=== PATIENT | female | born 1955 | race Caucasian/White ===

== ENCOUNTER 2024-07-12 13:04 | Inpatient (IN) | payer MEDICARE ==
[~2024-07-12] VITALS: Ht 157.5 cm; Wt 77.3 kg
[2024-07-12 13:56] LABS: BASOPHILS % (AUTO) 0.2 % (0-1); EOSINOPHILS # (AUTO) 0.1 X10'3 (0-0.9); EOSINOPHILS % (AUTO) 0.4 % (0-6); HEMATOCRIT 36.4 % (35.0-45.0); HEMOGLOBIN 12.5 g/dl (12.0-16.0); LYMPHOCYTES # (AUTO) 1.2 X10'3 (1.1-4.8); LYMPHOCYTES % (AUTO) 6.4 % (21-51); MEAN CORPUSCULAR HEMOGLOBIN 27.4 PG (27.0-31.0); MEAN CORPUSCULAR HGB CONC 34.3 g/dL (33.0-36.5); MEAN CORPUSCULAR VOLUME 79.8 FL (78-98); MEAN PLATELET VOLUME 8.3 FL (7.4-10.4); MONOCYTES # (AUTO) 1.1 X10'3 (0-0.9); MONOCYTES % (AUTO) 5.6 % (2-12); NEUTROPHILS # (AUTO) 16.9 X10'3 (1.8-7.7); NEUTROPHILS % (AUTO) 87.4 % (42-75); PLATELET COUNT 460 X10'3 (140-440); RED BLOOD COUNT 4.57 X10'6 (4.20-5.60); RED CELL DISTRIBUTION WIDTH 13.8 % (11.5-14.5); WHITE BLOOD COUNT 19.4 X10'3 (4.5-11.0)
[2024-07-12 14:27] LABS: ALANINE AMINOTRANSFERASE 29 U/L (12-78); ALKALINE PHOSPHATASE 77 IU/L (46-116); ANION GAP 16 (8-16); ASPARTATE AMINO TRANSFERASE 24 U/L (10-37); BILIRUBIN,TOTAL 0.7 MG/DL (0.1-1.0); BLOOD UREA NITROGEN 29 MG/DL (7-18); BUN/CREATININE RATIO 12.9 (10.0-20.0); CHLORIDE 88 MMOL/L (99-107); CREATININE 2.25 MG/DL (0.40-0.90); GLUCOSE 112 MG/DL (70-104); SODIUM 121 MMOL/L (135-145); TOTAL CARBON DIOXIDE 16.6 MMOL/L (24-32); TOTAL PROTEIN 8.1 G/DL (6.4-8.2); eCRCL 18 ML/MIN; eGFR 21 ML/MIN
[2024-07-12 14:29] LABS: POTASSIUM 2.6 MMOL/L (3.5-5.1); PRO BRAIN NATRIURETIC PEPTIDE 103 PG/ML (0-125)
[2024-07-12] MEDS: potassium CL 10mEq/100ml bag 100 ML IV SCH (15:17)
[2024-07-12] MEDS: ringers solution, lacted 1,000 ML IV ONE (15:20)
[2024-07-12] MEDS: magnesium sulf-water 2g/50mL 50 ML IV ONE (15:31)
[2024-07-12 15:42] LABS: MAGNESIUM 1.2 MG/DL (1.5-2.4)
[2024-07-12 16:14] LABS: C DIFF ANTIGEN NEGATIVE (NEGATIVE); C DIFF SPECIMEN=DIARRHEA? ACCEPTABLE; C DIFFICILE TOXINS A&B NEGATIVE (Neg)
[2024-07-12] MEDS ORDERED: magnesium sulf-water 4G/100mL 100 ML IV PRN (16:45)
[2024-07-12] MEDS ORDERED: morphine 2 MG/ML inj. syringe IV PRN (16:45)
[2024-07-12] MEDS ORDERED: ondansetron/PF 4mg/2ml inj IV PRN (16:45)
[2024-07-12] MEDS ORDERED: normal saline 1000ml 1,000 ML IV SCH (16:45)
[2024-07-12] MEDS ORDERED: magnesium sulf-water 2g/50mL 50 ML IV PRN (16:45)
[2024-07-12] MEDS ORDERED: potassium Cl 40MEQ/1/2NS 520ml 520 ML IV PRN (16:45)
[2024-07-12] MEDS ORDERED: potassium Cl 20 mEq SR tablet PO PRN (16:45)
[2024-07-12] MEDS ORDERED: HYDROcodone/acetaminophen 5mg/325mg tablet PO PRN (16:45)
[2024-07-12] MEDS ORDERED: acetaminophen 325mg tablet PO PRN ×2 (16:45)
[2024-07-12] MEDS ORDERED: iohexol 300mg/ml 100ml inj. ONE (16:49)
[2024-07-12] MEDS: hydrALAZINE 25 MG tablet PO SCH (17:20)
[2024-07-12] MEDS: amLODIPine 5mg tablet PO SCH (17:20)
[2024-07-12] MEDS: ciprofloxacin lact 400MG/200ML 200 ML IV SCH (17:42)
[2024-07-12] MEDS: sodium bicarbonate (8.4%) inj. 50 MEQ in dextrose 5%-water 1,000 ML IV SCH (18:11)
[2024-07-12 20:00] VITALS: RESP 20; O2SAT 99
[2024-07-12] MEDS: metroNIDAZOLE-Flagyl 500mg/NS 100 ML IV SCH (20:18)
[2024-07-12] MEDS: heparin, porcine 5000 units/ml vial SQ SCH (20:19)
[2024-07-12 22:07] VITALS: BP 135/71; PULSE 71; RESP 20; TEMP 97.4; O2SAT 99
[2024-07-12 23:58] VITALS: BP 124/59; PULSE 74
[2024-07-13] VITALS (9 sets, daily range): BP systolic 111–136; BP diastolic 55–66; PULSE 72–78; RESP 11–21; TEMP 97.4–98.6; O2SAT 97–99
[2024-07-13 05:05] LABS: BASOPHILS # (AUTO) 0.1 X10'3 (0-0.2); BASOPHILS % (AUTO) 0.4 % (0-1); EOSINOPHILS # (AUTO) 0.3 X10'3 (0-0.9); EOSINOPHILS % (AUTO) 1.8 % (0-6); HEMATOCRIT 32.3 % (35.0-45.0); HEMOGLOBIN 11.2 g/dl (12.0-16.0); LYMPHOCYTES # (AUTO) 1.5 X10'3 (1.1-4.8); LYMPHOCYTES % (AUTO) 9.9 % (21-51); MEAN CORPUSCULAR HEMOGLOBIN 27.2 PG (27.0-31.0); MEAN CORPUSCULAR HGB CONC 34.6 g/dL (33.0-36.5); MEAN CORPUSCULAR VOLUME 78.5 FL (78-98); MEAN PLATELET VOLUME 8.6 FL (7.4-10.4); MONOCYTES # (AUTO) 1.1 X10'3 (0-0.9); MONOCYTES % (AUTO) 7.3 % (2-12); NEUTROPHILS # (AUTO) 12.1 X10'3 (1.8-7.7); NEUTROPHILS % (AUTO) 80.6 % (42-75); PLATELET COUNT 402 X10'3 (140-440); RED BLOOD COUNT 4.12 X10'6 (4.20-5.60); RED CELL DISTRIBUTION WIDTH 13.7 % (11.5-14.5); WHITE BLOOD COUNT 15.1 X10'3 (4.5-11.0)
[2024-07-13 05:22] LABS: ALANINE AMINOTRANSFERASE 29 U/L (12-78); ALBUMIN 3.3 G/DL (3.4-5.0); ALBUMIN/GLOBULIN RATIO 0.9 (1.1-1.5); ALKALINE PHOSPHATASE 68 IU/L (46-116); ANION GAP 10 (8-16); ASPARTATE AMINO TRANSFERASE 25 U/L (10-37); BILIRUBIN,TOTAL 0.7 MG/DL (0.1-1.0); BLOOD UREA NITROGEN 21 MG/DL (7-18); BUN/CREATININE RATIO 13.2 (10.0-20.0); CALCIUM 8.2 MG/DL (8.5-10.1); CHLORIDE 91 MMOL/L (99-107); CREATININE 1.59 MG/DL (0.40-0.90); GLUCOSE 112 MG/DL (70-104); SODIUM 122 MMOL/L (135-145); TOTAL CARBON DIOXIDE 21.2 MMOL/L (24-32); TOTAL PROTEIN 7.1 G/DL (6.4-8.2); eCRCL 26 ML/MIN; eGFR 32 ML/MIN
[2024-07-13 05:34] LABS: POTASSIUM 2.7 MMOL/L (3.5-5.1)
[2024-07-13] MEDS: potassium Cl 20 mEq SR tablet PO PRN (05:39)
[2024-07-13] MEDS: ringers solution, lacted 1,000 ML IV SCH (08:45)
[2024-07-13 10:18] LABS: PHOSPHORUS 3.2 MG/DL (2.3-4.5)
[2024-07-13] MEDS ORDERED: potassium Cl 20 mEq SR tablet PO STA (14:06)
[2024-07-13] MEDS ORDERED: POTASSIUM CHLORIDE 40 MEQ IV ONE (14:20)
[2024-07-13] MEDS ORDERED: SODIUM CHLORIDE IV ONE (14:20)
[2024-07-13] MEDS: magnesium sulf-water 2g/50mL 50 ML IV ONE (14:20)
[2024-07-13] MEDS: normal saline 1000ml 1,000 ML IV SCH (14:25)
[2024-07-13] MEDS: potassium Cl 40MEQ/1/2NS 520ml 520 ML IV ONE (14:25)
[2024-07-13 15:03] LABS: OCCULT BLOOD STOOL NEGATIVE (Neg)
[2024-07-13 16:47] LABS: MAGNESIUM 1.5 MG/DL (1.5-2.4); POTASSIUM 3.4 MMOL/L (3.5-5.1)
[2024-07-13] MEDS: magnesium Cl slow-release 64mg tablet PO PRN (17:30)
[2024-07-13] MEDS: sodium chloride 1gm tablet PO ONE (17:40)
[2024-07-13 18:04] LABS: BILIRUBIN,URINE NEGATIVE (Neg); CLARITY,URINE CLEAR (Clear); COLOR,URINE STRAW (Yellow); GLUCOSE, URINE NEGATIVE (Neg); KETONES,URINE NEGATIVE (Neg); LEUKOCYTE ESTERASE ,URINE NEGATIVE (Neg); NITRITES, URINE NEGATIVE (Neg); OCCULT BLOOD,URINE NEGATIVE (Neg); PH,URINE 5.5 (4.8-8.0); PROTEIN,URINE NEGATIVE (Neg); UROBILINOGEN,URINE 0.2 E.U/dL (0.2-1.0)
[2024-07-13 18:11] LABS: CHLORIDE,URINE RANDOM < 50 MEQ/L; SODIUM,URINE RANDOM 24 MEQ/L
[2024-07-13 18:17] LABS: UA COLLECTION TYPE NON-SPECIFIED
[2024-07-13] MEDS: sodium chloride 1gm tablet PO SCH (20:11)
[2024-07-13 20:41] LABS: MAGNESIUM 1.5 MG/DL (1.5-2.4); POTASSIUM 3.6 MMOL/L (3.5-5.1)
[2024-07-14] VITALS (7 sets, daily range): BP systolic 92–123; BP diastolic 44–59; PULSE 64–73; RESP 17–18; TEMP 97.4–98.6; O2SAT 96–99
[2024-07-14 03:45] LABS: BASOPHILS % (AUTO) 0.4 % (0-1); EOSINOPHILS # (AUTO) 0.2 X10'3 (0-0.9); EOSINOPHILS % (AUTO) 1.6 % (0-6); HEMATOCRIT 31.6 % (35.0-45.0); HEMOGLOBIN 11.2 g/dl (12.0-16.0); LYMPHOCYTES % (AUTO) 19.5 % (21-51); MEAN CORPUSCULAR HEMOGLOBIN 28.2 PG (27.0-31.0); MEAN CORPUSCULAR HGB CONC 35.4 g/dL (33.0-36.5); MEAN CORPUSCULAR VOLUME 79.7 FL (78-98); MONOCYTES % (AUTO) 9.6 % (2-12); NEUTROPHILS # (AUTO) 7.1 X10'3 (1.8-7.7); NEUTROPHILS % (AUTO) 68.9 % (42-75); PLATELET COUNT 379 X10'3 (140-440); RED BLOOD COUNT 3.96 X10'6 (4.20-5.60); RED CELL DISTRIBUTION WIDTH 13.8 % (11.5-14.5); WHITE BLOOD COUNT 10.2 X10'3 (4.5-11.0)
[2024-07-14 03:57] LABS: ALANINE AMINOTRANSFERASE 29 U/L (12-78); ALBUMIN 3.1 G/DL (3.4-5.0); ALBUMIN/GLOBULIN RATIO 0.8 (1.1-1.5); ALKALINE PHOSPHATASE 65 IU/L (46-116); ANION GAP 6 (8-16); ASPARTATE AMINO TRANSFERASE 42 U/L (10-37); BILIRUBIN,TOTAL 0.5 MG/DL (0.1-1.0); BLOOD UREA NITROGEN 10 MG/DL (7-18); BUN/CREATININE RATIO 7.4 (10.0-20.0); CALCIUM 8.3 MG/DL (8.5-10.1); CHLORIDE 99 MMOL/L (99-107); CREATININE 1.35 MG/DL (0.40-0.90); GLUCOSE 90 MG/DL (70-104); MAGNESIUM 1.5 MG/DL (1.5-2.4); PHOSPHORUS 2.9 MG/DL (2.3-4.5); SODIUM 127 MMOL/L (135-145); TOTAL CARBON DIOXIDE 21.7 MMOL/L (24-32); TOTAL PROTEIN 6.8 G/DL (6.4-8.2); eCRCL 30 ML/MIN; eGFR 39 ML/MIN
[2024-07-14 03:58] LABS: POTASSIUM 4.3 MMOL/L (3.5-5.1)
[2024-07-14] MEDS: diatr meglu/diatrizoate 30ml oral sol.-(3 dose) bottle PO SCH (08:09)
[2024-07-14] MEDS ORDERED: iohexol 300mg/ml 100ml inj. ONE (08:20)
[2024-07-14 08:27] LABS: MAGNESIUM 1.6 MG/DL (1.5-2.4); POTASSIUM 3.8 MMOL/L (3.5-5.1)
[2024-07-14] MEDS: methylPREDNISolone sod succ 125mg/2ml vial IV ONE (15:28)
[2024-07-14] MEDS: methylPREDNISolone sod succ 125mg/2ml vial IV SCH (19:47)
[2024-07-15] VITALS (8 sets, daily range): BP systolic 122–142; BP diastolic 52–72; PULSE 86–100; RESP 11–19; TEMP 97.2–99.4; O2SAT 98–99
[2024-07-15] MEDS ORDERED: PANT20TA18 PO (04:09)
[2024-07-15] MEDS ORDERED: OLME1TAB50 PO (04:09)
[2024-07-15 06:45] LABS: BASOPHILS % (AUTO) 0.1 % (0-1); EOSINOPHILS % (AUTO) 0 % (0-6); HEMATOCRIT 34.4 % (35.0-45.0); HEMOGLOBIN 11.9 g/dl (12.0-16.0); LYMPHOCYTES # (AUTO) 0.7 X10'3 (1.1-4.8); LYMPHOCYTES % (AUTO) 5.9 % (21-51); MEAN CORPUSCULAR HEMOGLOBIN 28.1 PG (27.0-31.0); MEAN CORPUSCULAR HGB CONC 34.4 g/dL (33.0-36.5); MEAN CORPUSCULAR VOLUME 81.7 FL (78-98); MEAN PLATELET VOLUME 8.2 FL (7.4-10.4); MONOCYTES # (AUTO) 0.1 X10'3 (0-0.9); MONOCYTES % (AUTO) 1.1 % (2-12); NEUTROPHILS # (AUTO) 10.5 X10'3 (1.8-7.7); NEUTROPHILS % (AUTO) 92.9 % (42-75); PLATELET COUNT 372 X10'3 (140-440); RED BLOOD COUNT 4.21 X10'6 (4.20-5.60); RED CELL DISTRIBUTION WIDTH 13.9 % (11.5-14.5); WHITE BLOOD COUNT 11.3 X10'3 (4.5-11.0)
[2024-07-15 07:20] LABS: MAGNESIUM 1.5 MG/DL (1.5-2.4)
[2024-07-15 09:04] LABS: ALANINE AMINOTRANSFERASE 38 U/L (12-78); ALBUMIN 3.4 G/DL (3.4-5.0); ALBUMIN/GLOBULIN RATIO 0.9 (1.1-1.5); ALKALINE PHOSPHATASE 71 IU/L (46-116); ANION GAP 9 (8-16); ASPARTATE AMINO TRANSFERASE 33 U/L (10-37); BILIRUBIN,TOTAL 0.2 MG/DL (0.1-1.0); BLOOD UREA NITROGEN 8 MG/DL (7-18); BUN/CREATININE RATIO 6.2 (10.0-20.0); CALCIUM 8.3 MG/DL (8.5-10.1); CHLORIDE 104 MMOL/L (99-107); GLUCOSE 130 MG/DL (70-104); SODIUM 133 MMOL/L (135-145); TOTAL PROTEIN 7.3 G/DL (6.4-8.2); eCRCL 31 ML/MIN; eGFR 40 ML/MIN
[2024-07-15] MEDS: methylPREDNISolone sod succ/PF 40mg inj. IV SCH (14:27)
[2024-07-16] VITALS (15 sets, daily range): BP systolic 95–160; BP diastolic 42–75; PULSE 69–117; RESP 9–20; TEMP 97.6–98.3; O2SAT 90–99
[2024-07-16 07:29] LABS: BASOPHILS % (AUTO) 0.1 % (0-1); EOSINOPHILS % (AUTO) 0 % (0-6); HEMATOCRIT 34.2 % (35.0-45.0); HEMOGLOBIN 10.9 g/dl (12.0-16.0); LYMPHOCYTES # (AUTO) 1.2 X10'3 (1.1-4.8); LYMPHOCYTES % (AUTO) 6.8 % (21-51); MEAN CORPUSCULAR HEMOGLOBIN 27.2 PG (27.0-31.0); MEAN CORPUSCULAR VOLUME 85.2 FL (78-98); MEAN PLATELET VOLUME 8.2 FL (7.4-10.4); MONOCYTES # (AUTO) 0.6 X10'3 (0-0.9); MONOCYTES % (AUTO) 3.2 % (2-12); NEUTROPHILS % (AUTO) 89.9 % (42-75); PLATELET COUNT 381 X10'3 (140-440); RED BLOOD COUNT 4.01 X10'6 (4.20-5.60); RED CELL DISTRIBUTION WIDTH 14.6 % (11.5-14.5); WHITE BLOOD COUNT 17.8 X10'3 (4.5-11.0)
[2024-07-16 07:57] LABS: ALANINE AMINOTRANSFERASE 36 U/L (12-78); ALBUMIN 3.3 G/DL (3.4-5.0); ALBUMIN/GLOBULIN RATIO 1.1 (1.1-1.5); ALKALINE PHOSPHATASE 65 IU/L (46-116); ANION GAP 9 (8-16); ASPARTATE AMINO TRANSFERASE 35 U/L (10-37); BILIRUBIN,TOTAL 0.2 MG/DL (0.1-1.0); BLOOD UREA NITROGEN 11 MG/DL (7-18); BUN/CREATININE RATIO 9.2 (10.0-20.0); CALCIUM 8.2 MG/DL (8.5-10.1); CHLORIDE 107 MMOL/L (99-107); CREATININE 1.19 MG/DL (0.40-0.90); GLUCOSE 124 MG/DL (70-104); MAGNESIUM 1.7 MG/DL (1.5-2.4); POTASSIUM 3.8 MMOL/L (3.5-5.1); SODIUM 136 MMOL/L (135-145); TOTAL CARBON DIOXIDE 20.4 MMOL/L (24-32); TOTAL PROTEIN 6.4 G/DL (6.4-8.2); eCRCL 34 ML/MIN; eGFR 45 ML/MIN
[2024-07-16] MEDS ORDERED: LIDOcaine 2% Viscous 15ml cup ONE (12:02)
[2024-07-16] MEDS ORDERED: MIDAZolam 1 MG/ML 5ML VIAL ONE ×2 (12:24→12:37)
[2024-07-16] MEDS ORDERED: fentaNYL/PF 50MCG/1 ML 2ML syringe ONE ×2 (12:24→12:37)
[2024-07-16] MEDS ORDERED: NOR5T PO (13:02)
[2024-07-16] MEDS ORDERED: PRED10TA23 PO (13:02)
== END 2024-07-16 17:19 | disposition home or self-care (01) | DRG 871 ==
LOC: ER 13:05 → PCU 3S 16:51
PROVIDERS: ADMIT Internal Medicine; ATTEND Internal Medicine
PROC: BW211ZZ Computerized Tomography (CT Scan) of Abdomen and Pelvis using Low Osmolar Contrast (ICD-10-PCS; 2024-07-14)
PROC: 0DB98ZX Excision of Duodenum, Via Natural or Artificial Opening Endoscopic, Diagnostic (ICD-10-PCS; principal; 2024-07-16)
PROC: 0DB68ZX Excision of Stomach, Via Natural or Artificial Opening Endoscopic, Diagnostic (ICD-10-PCS; 2024-07-16)
DX: A41.89 Other specified sepsis (principal); N17.0 Acute kidney failure with tubular necrosis; E87.1 Hypo-osmolality and hyponatremia; A08.4 Viral intestinal infection, unspecified; E87.6 Hypokalemia; E86.0 Dehydration; K21.9 Gastro-esophageal reflux disease without esophagitis; E83.42 Hypomagnesemia; K29.80 Duodenitis without bleeding; I10 Essential (primary) hypertension; K29.70 Gastritis, unspecified, without bleeding; Z88.2 Allergy status to sulfonamides
CPT/HCPCS: 36415; 43239; 71045; 74176; 74177; 76770; 80053; 81003; 82272; 82436; 83605; 83735; 83880; 84100; 84132; 84133; 84145; 84300; 84484; 85025; 85651; 87040; 87045; 87046; 87081; 87324; 87449; 89055; 93005; 96361; 96365; 97161; 97530; 99152; 99285; A4620; A6258; G0378; J0744; J1644; J2250; J2919; J3010; J3480; J3490; J7030; J7040; J7070; J7120; Q9963; Q9967

== ENCOUNTER 2024-08-12 14:41 | Emergency (ER) | payer MEDICARE ==
[~2024-08-12] VITALS: Ht 157.5 cm; Wt 75.0 kg
[~2024-08-12 14:41] MED LIST: NOR5T PO; PRED10TA23 PO
--- NOTE | 2024-08-12 15:23 | Physician Documentation ---
History of Present Illness ~ Chief Complaint: Nausea Stated Complaint: ABD PAIN Time Seen by MD: 15:00 HPI This is a 69-year-old female who presents with three days of progressively worsening diarrhea, patient was seen July 12 for one month of diarrhea and admitted, patient was diagnosed with small bowel inflammation and was placed on a 20 day course of steroids, she finish the steroids on August 05 after significant improvement in diarrhea however on August 09 patient began experiencing diarrhea again. Patient reports she has been having up to 10 bowel movements a day of watery diarrhea, patient does report that she was able to keep food and liquids down without difficulty. Patient reports subjective cold sweats at home though does not report subjective fever. Patient reports that she is now experiencing low back pain and saw primary care today who advised her to come to the emergency department. Patient reports she has a follow up with Dr. King on August 30. Medication Reconciliation Allergies: Coded Allergies: Sulfa (Sulfonamide Antibiotics) (Verified Allergy, Unknown, hives, 08/12/24) Scheduled Amlodipine Besylate (Amlodipine Besylate), 1 TAB PO DAILY Prednisone (Prednisone), 0 PO DAILY Past Medical History Past Medical History: No Pertinent History Review of Systems ROS Low back pain and diarrhea as stated above in the HPI, otherwise all systems are reviewed and negative. Physical Exam Vital Signs: Heart Rate: 111, Respiratory Rate: 16, BP: 147/82, Pulse Oximetry: 97, Weight: 75.000 Oxygen Flow Rate: 0 Physical Exam VITALS: Reviewed and as above. GENERAL: Alert, nontoxic appearing, no apparent distress. RESPIRATORY: Lungs clear, normal breath sounds, no respiratory distress. CV: Regular rate, rhythm, no murmur GI: Soft, non-tender, bowels sounds present, no rebound, guarding, or rigidity BACK: No CVA tenderness, no tenderness to palpation Progress Results/Orders Reviewed/noted all lab results: Yes Results/Orders Medications Received in ER Medications (Trade) Dose Ordered Sig/Paul Route PRN Reason Start Time Stop Time Status Last Admin Dose Admin Acetaminophen 100 ml @ 400 mls/hr ONCE ONCE IV 08/12/24 15:45 08/12/24 15:59 DC 08/12/24 15:52 400 MLS/HR (sodium chloride 1000ml IV soln) 1,000 ml ONCE ONCE IVB 08/12/24 16:15 08/12/24 16:16 DC 08/12/24 16:48 1,000 ML (sodium chloride 1000ml IV soln) 1,000 ml ONCE ONCE IVB 08/12/24 18:00 08/12/24 18:09 DC 08/12/24 19:38 1,000 ML (Gastrografin 66-10 oral solution) 10 ml Q45M PO 08/12/24 18:00 08/12/24 19:31 DC 08/12/24 20:59 10 ML Vital Signs 08/12/24 08/12/24 08/12/24 08/12/24 14:48 14:59 15:11 16:30 Pulse 120 111 99 Resp 23 15 16 18 B/P (MAP) 136/78 147/82 (103) 129/67 (87) Pulse Ox 97 97 96 O2 Flow Rate 0 0 0 08/12/24 08/12/24 08/12/24 08/12/24 17:31 18:15 18:47 20:41 Pulse 89 85 92 Resp 15 15 14 B/P (MAP) 111/64 (80) 108/59 (75) 127/64 (85) Pulse Ox 96 97 99 O2 Flow Rate 0 0 0 08/12/24 23:05 Temp 98.2 Pulse 90 Resp 16 B/P (MAP) 126/89 Pulse Ox 96 Laboratory Tests Test 08/12/24 15:19 08/12/24 18:36 White Blood Count 11.7 H Red Blood Count 4.33 Hemoglobin 12.1 Hematocrit 35.8 Mean Corpuscular Volume 82.6 Mean Corpuscular Hemoglobin 28.0 Mean Corpuscular Hemoglobin Concent 33.8 Red Cell Distribution Width 15.3 H Platelet Count 370 Mean Platelet Volume 8.1 Neutrophils (%) (Auto) 84.1 H Lymphocytes (%) (Auto) 6.7 L Monocytes (%) (Auto) 8.0 Eosinophils (%) (Auto) 1.0 Basophils (%) (Auto) 0.2 Neutrophils # (Auto) 9.9 H Lymphocytes # (Auto) 0.8 L Monocytes # (Auto) 0.9 Eosinophils # (Auto) 0.1 Basophils # (Auto) 0.0 CBC Comment Sodium Level 132 L Potassium Level 3.6 Chloride Level 101 Carbon Dioxide Level 20.2 L Anion Gap 11 Blood Urea Nitrogen 12 Creatinine 1.56 H Estimated GFR/1.73 m2 33 BUN/Creatinine Ratio 7.7 L Glucose Level 118 H Lactic Acid Level 0.9 Calcium Level 8.9 Albumin 3.7 Procalcitonin < 0.05 Chemistry Comments Urine Specimen Description Non-specified Urine Color Yellow Urine Clarity Clear Urine pH 5.5 Urine Specific Sharon 1.020 Urine Protein Negative Urine Glucose (UA) Negative Urine Ketones Negative Urine Occult Blood Negative Urine Nitrite Negative Urine Bilirubin Negative Urine Urobilinogen 0.2 Urine Leukocyte Esterase Negative Urine Culture Indicated Not ind Volume Urine Centrifuged 10 ml Urine Comment Microbiology Date/Time Source Procedure Growth Status 08/12/24 15:25 Blood Hand Left Blood Culture - Preliminary NEGATIVE (LESS THAN 24 HOURS) Resulted EKG/XRAY/CT/US/VASC/MRI Chest X-Ray : Additional Comments EXAM: DI CHEST,SINGLE VIEW Indication: sepsis protocol Technique: Single frontal view of the chest was obtained Comparison: DI CHEST,SINGLE VIEW on DOS: 07/12/24 FINDINGS: Lines and Tubes: None Lungs: No focal consolidation. Pleura: No effusion. No pneumothorax. Cardiomediastinal contours: Unremarkable Bones: No acute osseous abnormality. IMPRESSION: No acute cardiopulmonary disease. Electronically Signed by:CARLA CAGLE MD Date & Time: 08/12/24 1537 Dictated by: CARLA CAGLE MD Dictation date and time: 08/12/24 3587 I have reviewed and agree with the radiology report. I have reviewed and interpreted the imaging as: No fracture or dislocation CT : Interpreted By: radiologist CT: abdomen/pelvis Impression I have reviewed and interpreted the imaging as: No intraperitoneal free air, no air-fluid levels Clinical History Persistent Diarrhea and Low Back Pain Comparison CT ABD/PELVIS WITH IV on 07/14/2024, 367 images. Technique: All CT scans at this medical facility are performed using dose modulation techniques as appropriate to a performed exam including the following: Automated exposure control was utilized; adjustment of the mA and/or kV according to patient size; and use of iterative reconstruction technique. All CT studies are reported to the Dose Index Registry of the [employer]. Contrast: OMNIPAQUE 300, 100ML, Radiation Dose: CTDI (mGy): 28.40; DLP (mGy-cm): 1298.79 JESUS GRANGER, [id number] Comparison: 07/14/24 FINDINGS: Lower chest: Unremarkable Liver: Unremarkable Gallbladder: Unremarkable Pancreas: Diffuse pancreatic atrophy Spleen: Unremarkable Adrenals:Unremarkable Kidneys: Bilateral renal cysts. 2 mm nonobstructive left renal calcified calc ulus. No calcified ureteral calculi. No hydroureteronephrosis Stomach:Unremarkable Bowel: Contrast is seen in the large bowel. No contrast is seen in the small bowel. No acute abnormality in the small and large bowel. The appendix is not visualized, however there is no evidence of pericecal inflammatory changes Urinary bladder:Unremarkable Reproductive organs:No pelvic masses Peritoneum, retroperitoneum, lymphadenopathy:Unremarkable Vascular structures:Unremarkable Abdominal wall:Unremarkable Musculoskeletal:No acute osseous abnormality IMPRESSION: 2 mm nonobstructive left renal calcified calculus. No calcified ureteral calculi. No hydroureteronephrosis Diffuse pancreatic atrophy. No evidence of acute intra-abdominal abnormality This report was electronically signed by Mic Ron MD on 08/12/2024 10:52:20 PM. Reviewed by KRISTINE Armendariz Medical Decision Making Findings This 69-year-old female presented with four days of diarrhea and low back pain, patient was admitted for persistent diarrhea on July 12 and diagnosed with Jejunitis of unclear etiology by gastroenterology and discharged on a course of steroids to follow up with GI outpatient, patient reported that the steroids did provide relief of her diarrhea however after finishing the course of steroids the diarrhea returned, patient additionally reports that her follow up appointment is not until August 30. Patient was otherwise well-appearing and able to maintain oral intake though is having frequent liquid bowel movements, she is hemodynamically stable though labs due to indicate an ongoing PARAM consistent with her previous labs at hospitalization and discharge. Patient was medicated for pain reporting adequate decrease in pain. Review of previous records indicate that GI had recommended repeat CT with oral and IV contrast and a follow up colonoscopy if diarrhea was to continue, therefore a CT with oral and IV contrast was ordered. CT did not demonstrate emergent findings including no evidence of bowel obstruction, or bowel perforation. It was reassuring the patient physical exam did not demonstrate evidence of abdominal pain. Under of physical exam was benign and vital signs stable after IV fluid rehydration. Patient is appropriate for discharge and follow up as scheduled with GI, we will start patient back on course of steroids as this seems to have been effectively treating her symptoms. Patient provided careful return to care precautions and verbalized understanding, I discussed with the patient the plan and she agrees to the plan. Diff Dx N/V/D:Considerations: Include: Appendicitis, Bowel obstruction, Dehydration, DKA, Diarrhea - bacterial, Diarrhea - parasitic, Diarrhea - viral, Diverticulitis, Diverticulosis, Drug toxicity, Electrolyte imbalance, Food poisoning, Gastroenteritis, GI bleed, Hypovolemia, Hypotension, Inflammatory BD, Renal failure, Urinary obstruction, UTI Departure Time of Disposition: 22:52 Disposition: 01 HOME / SELF CARE / HOMELESS Impression: Primary Impression: Diarrhea Qualified Codes: R19.7 - Diarrhea, unspecified Additional Impression: Hyponatremia Condition: Improved Discharge Instructions: Diarrhea, Adult Additional Instructions: Follow up as scheduled with the GI specialist who saw you last, please also follow up with your primary care provider in the next few days. Continue taking the previously prescribed antibiotics. Take the steroids as prescribed. Please return to the emergency department for any new or worsening concerning symptoms including but not limited to fever, abdominal pain, or if your diarrhea becomes bloody. Referrals: NO PRIMARY CARE PROVIDER (PCP) Prescriptions Prednisone (Prednisone) 10 Mg Tablet 0 PO DAILY, #42 TAB Take 4 tabs daily x4 days, then 3 daily x4 days 2 daily x4 days 1 daily x4 days 1/2 daily x4 days then STOP Prov: AMADO ARMENDARIZ 08/12/24 Education Educated: Patient Educated regarding: diagnosis, treatment, prognosis, need for follow up Signature Scribe Signature: Scribed for Amado Armendariz by Refugio Welsh . 08/12/24 23:15 Attestation: The note accurately reflects work and decisions made by me.CONNER Newman 08/12/24 22:54 AMADO ARMENDARIZ August 12, 2024 15:23 REFUGIO GRANADO August 12, 2024 23:15
--- NOTE | 2024-08-12 15:39 | RADIOLOGY REPORT ---
EXAM: DI CHEST,SINGLE VIEW Indication: sepsis protocol Technique: Single frontal view of the chest was obtained Comparison: DI CHEST,SINGLE VIEW on DOS: 07/12/24 FINDINGS: Lines and Tubes: None Lungs: No focal consolidation. Pleura: No effusion. No pneumothorax. Cardiomediastinal contours: Unremarkable Bones: No acute osseous abnormality. IMPRESSION: No acute cardiopulmonary disease.
[2024-08-12 15:45] LABS: ALBUMIN 3.7 G/DL (3.4-5.0); ANION GAP 11 (8-16); BLOOD UREA NITROGEN 12 MG/DL (7-18); BUN/CREATININE RATIO 7.7 (10.0-20.0); CALCIUM 8.9 MG/DL (8.5-10.1); CHLORIDE 101 MMOL/L (99-107); CREATININE 1.56 MG/DL (0.40-0.90); GLUCOSE 118 MG/DL (70-104); POTASSIUM 3.6 MMOL/L (3.5-5.1); SODIUM 132 MMOL/L (135-145); TOTAL CARBON DIOXIDE 20.2 MMOL/L (24-32); eCRCL 26 ML/MIN; eGFR 33 ML/MIN
[2024-08-12] MEDS: acetaminophen 1,000mg/100ml IV 100 ML IV ONE (15:52)
[2024-08-12 16:26] LABS: BASOPHILS % (AUTO) 0.2 % (0-1); EOSINOPHILS # (AUTO) 0.1 X10'3 (0-0.9); HEMATOCRIT 35.8 % (35.0-45.0); HEMOGLOBIN 12.1 g/dl (12.0-16.0); LYMPHOCYTES # (AUTO) 0.8 X10'3 (1.1-4.8); LYMPHOCYTES % (AUTO) 6.7 % (21-51); MEAN CORPUSCULAR HGB CONC 33.8 g/dL (33.0-36.5); MEAN CORPUSCULAR VOLUME 82.6 FL (78-98); MEAN PLATELET VOLUME 8.1 FL (7.4-10.4); MONOCYTES # (AUTO) 0.9 X10'3 (0-0.9); NEUTROPHILS # (AUTO) 9.9 X10'3 (1.8-7.7); NEUTROPHILS % (AUTO) 84.1 % (42-75); PLATELET COUNT 370 X10'3 (140-440); RED BLOOD COUNT 4.33 X10'6 (4.20-5.60); RED CELL DISTRIBUTION WIDTH 15.3 % (11.5-14.5); WHITE BLOOD COUNT 11.7 X10'3 (4.5-11.0)
[2024-08-12] MEDS: normal saline 1000ML IV soln IVB ONE ×2 (16:48→19:38)
[2024-08-12 19:09] LABS: BILIRUBIN,URINE NEGATIVE (Neg); CLARITY,URINE CLEAR (Clear); COLOR,URINE YELLOW (Yellow); GLUCOSE, URINE NEGATIVE (Neg); KETONES,URINE NEGATIVE (Neg); LEUKOCYTE ESTERASE ,URINE NEGATIVE (Neg); NITRITES, URINE NEGATIVE (Neg); OCCULT BLOOD,URINE NEGATIVE (Neg); PH,URINE 5.5 (4.8-8.0); PROTEIN,URINE NEGATIVE (Neg); UROBILINOGEN,URINE 0.2 E.U/dL (0.2-1.0)
[2024-08-12 19:14] LABS: UA COLLECTION TYPE NON-SPECIFIED
[2024-08-12] MEDS: diatr meglu/diatrizoate 30ml oral sol.-(3 dose) bottle PO SCH (19:20)
[2024-08-12] MEDS ORDERED: iohexol 300mg/ml 100ml inj. ONE (21:10)
[2024-08-12] MEDS ORDERED: PRED10TA23 PO ×2 (22:52→23:21)
--- NOTE | 2024-08-12 22:56 | RADIOLOGY REPORT ---
Clinical History Persistent Diarrhea and Low Back Pain Comparison CT ABD/PELVIS WITH IV on 07/14/2024, 367 images. Technique: All CT scans at this medical facility are performed using dose modulation techniques as appropriate t o a performed exam including the following: Automated exposure control was utilized; adjustment of th e mA and/or kV according to patient size; and use of iterative reconstruction technique. All CT studies are reported to the Dose Index Registry of the [employer]. Contrast: OMNIPAQUE 300, 100ML, Radiation Dose: CTDI (mGy): 28.40; DLP (mGy-cm): 1298.79 JESUS GRANGER, [id number] Comparison: 07/14/24 FINDINGS: Lower chest: Unremarkable Liver: Unremarkable Gallbladder: Unremarkable Pancreas: Diffuse pancreatic atrophy Spleen: Unremarkable Adrenals:Unremarkable Kidneys: Bilateral renal cysts. 2 mm nonobstructive left renal calcified calculus. No calcified ure teral calculi. No hydroureteronephrosis Stomach:Unremarkable Bowel: Contrast is seen in the large bowel. No contrast is seen in the small bowel. No acute abnorm ality in the small and large bowel. The appendix is not visualized, however there is no evidence of pericecal inflammatory changes Urinary bladder:Unremarkable Reproductive organs:No pelvic masses Peritoneum, retroperitoneum, lymphadenopathy:Unremarkable Vascular structures:Unremarkable Abdominal wall:Unremarkable Musculoskeletal:No acute osseous abnormality IMPRESSION: 2 mm nonobstructive left renal calcified calculus. No calcified ureteral calculi. No hydroureterone phrosis Diffuse pancreatic atrophy. No evidence of acute intra-abdominal abnormality This report was electronically signed by Mic Ron MD on 08/12/2024 10:52:20 PM.
[2024-08-12 23:05] VITALS: BP 126/89; PULSE 90; RESP 16; TEMP 98.2; O2SAT 96
== END 2024-08-12 23:22 | disposition home or self-care (01) ==
LOC: ER 14:42
DX: R19.7 Diarrhea, unspecified (principal); R11.10 Vomiting, unspecified; E87.1 Hypo-osmolality and hyponatremia; Z88.2 Allergy status to sulfonamides; Z79.899 Other long term (current) drug therapy
CPT/HCPCS: 36415; 71045; 74177; 80048; 81003; 83605; 84145; 85025; 87040; 96361; 96365; 99285; J0131; J7030; Q9963; Q9967

== ENCOUNTER 2024-10-20 14:44 | Emergency (ER) | payer MEDICARE ==
[~2024-10-20] VITALS: Ht 157.5 cm; Wt 71.8 kg
[2024-10-20 14:54] VITALS: BP 169/84; PULSE 90; O2SAT 97
[2024-10-20 18:04] LABS: MEAN PLATELET VOLUME 7.8 FL (7.4-10.4); RED CELL DISTRIBUTION WIDTH 13.6 % (11.5-14.5)
[2024-10-20 18:12] LABS: CREATININE 1.13 MG/DL (0.40-0.90); TOTAL CARBON DIOXIDE 25.3 MMOL/L (24-32); eCRCL 36 ML/MIN; eGFR 47 ML/MIN
--- NOTE | 2024-10-20 18:33 | Physician Documentation ---
History of Present Illness ~ Chief Complaint: Back Pain Stated Complaint: BACK PAIN Time Seen by MD: 17:01 HPI Patient is seen today with complaints of acute low back pain after she tried to lift something a few days ago. Patient states she is now also having numbness and tingling down her right leg. Patient denies any saddle anesthesia or changes in bowel or bladder habits. Patient denies any previous spine surgeries. Patient states she is currently taking steroid orally for in inflammatory bowel issue and states she chronically has elevated white blood cell count as of late. Patient states she has had some chronic kidney disease. Patient denies any chest pain or shortness of breath or abdominal pain or nausea, vomiting, diarrhea. Patient has no other concern or complaint at this time. Medication Reconciliation Allergies: Coded Allergies: Sulfa (Sulfonamide Antibiotics) (Verified Allergy, Unknown, hives, 10/20/24) Scheduled Amlodipine Besylate (Amlodipine Besylate), 1 TAB PO DAILY Prednisone (Prednisone), 0 PO DAILY Past Medical History Past Medical History: No Pertinent History Review of Systems Constitutional: Denies: chills, fever, weakness Eyes: Denies: pain, blurred vision ENT: Denies: ear pain, nose pain, throat pain, mouth pain Respiratory: Denies: cough, shortness of breath Cardiovascular: Denies: chest pain, palpitations Gastrointestinal: Denies: abdominal pain, nausea, vomiting Genitourinary: Denies: burning, dysuria Female Genitalia: Denies: vaginal discharge, pelvic pain Neurological: Denies: headache, dizziness Musculoskeletal: Denies: pain, swelling Integumentary: Denies: rash, lesions Allergic/Immunologic: Denies: hives, itching Hematologic/Lymphatic: Denies: no symptoms reported Psychiatric: Denies: depression, anxiety Physical Exam Physical Exam Vital Signs: Temperature: 98.8, Heart Rate: 90, Respiratory Rate: 18, BP: 169/84, Pulse Oximetry: 97, Weight: 71.820 Oxygen Flow Rate: 0 Physical Exam General: Awake and Alert, no acute distress. HEENT: Conjunctiva pink, Sclera clear, Mucus Membranes moist. Neck: Supple without masses and tenderness. Resp: Unlabored. Lungs clear to auscultation bilaterally. Heart: Regular Rate and rhythm, normal S1 and S2 without murmur, rub or gallop. Musculoskeletal: Patient has significant decreased range of motion of the l umbar spine in all planes of motion, patient has decreased light touch sensation to the anterior lowe or anterior surface of right lower leg. Abdomen: Soft and non tender no organomegaly Extremities: No cyanosis,clubbing or edema. Skin: Warm and Dry. Progress Results/Orders Results/Orders Orders - RACHAEL AVALOS PAC Urinalysis, Cult If Indicated (10/20/24 18:27) Completed Orders - RACHAEL AVALOS PAC Cbc/Diff (10/20/24 17:27) BMP (10/20/24 17:27) Vital Signs 10/20/24 14:54 Temp 98.8 Pulse 90 Resp 18 B/P (MAP) 169/84 Pulse Ox 97 O2 Flow Rate 0 Laboratory Tests Test 10/20/24 17:50 White Blood Count 18.3 H Red Blood Count 4.83 Hemoglobin 13.4 Hematocrit 40.1 Mean Corpuscular Volume 83.1 Mean Corpuscular Hemoglobin 27.8 Mean Corpuscular Hemoglobin Concent 33.5 Red Cell Distribution Width 13.6 Platelet Count 511 H Mean Platelet Volume 7.8 Neutrophils (%) (Auto) 85.8 H Lymphocytes (%) (Auto) 8.8 L Monocytes (%) (Auto) 5.0 Eosinophils (%) (Auto) 0.1 Basophils (%) (Auto) 0.3 Neutrophils # (Auto) 15.7 H Lymphocytes # (Auto) 1.6 Monocytes # (Auto) 0.9 Eosinophils # (Auto) 0.0 Basophils # (Auto) 0.1 CBC Comment Sodium Level 136 Potassium Level 3.0 *L Chloride Level 99 Carbon Dioxide Level 25.3 Anion Gap 12 Blood Urea Nitrogen 17 Creatinine 1.13 H Estimated GFR/1.73 m2 47 BUN/Creatinine Ratio 15.0 Glucose Level 102 Calcium Level 9.2 Albumin 4.0 Chemistry Comments Medical Decision Making Findings Patient is seen today with complaints of acute low back pain after she tried to lift something a few days ago. Patient states she is now also having numbness and tingling down her right leg. Patient denies any saddle anesthesia or changes in bowel or bladder habits. Patient denies any previous spine surgeries. Patient states she is currently taking steroid orally for in inflammatory bowel issue and states she chronically has elevated white blood cell count as of late. Patient states she has had some chronic kidney disease. Patient denies any chest pain or shortness of breath or abdominal pain or nausea, vomiting, diarrhea. Patient has no other concern or complaint at this time. Patient declined admission at this time for further eval and consult by hosp italist. Patient did have labs drawn today that showed GFR 47 which is improved from previous blood draw few months ago as well as improve creatinine improved from a couple of months ago. Patient was given Toradol 15 mg IM in the ED today as well as baclofen 10 mg by mouth. Prescription of methocarbamol muscle relaxer and Celebrex sent to patient's pharmacy. Patient will follow up with primary care as soon as possible for referral to physical therapy for further eval and treatment of low back pain and possible MRI of the lumbar spine to rule out bulge disc and lumbar radiculopathy. Return to ED with any worsening, concerning or changing symptoms. Patient declined prescription of narcotic pain meds at this time. Departure Disposition: HOME / SELF CARE / HOMELESS Impression: Primary Impression: Low back pain Qualified Codes: M54.41 - Lumbago with sciatica, right side Condition: Stable Discharge Instructions: Sciatica, [id number] Additional Instructions: Patient did have labs drawn today that showed GFR 47 which is improved from previous blood draw few months ago as well as improve creatinine improved from a couple of months ago. Patient was given Toradol 15 mg IM in the ED today as well as baclofen 10 mg by mouth. Prescription of methocarbamol muscle relaxer and Celebrex sent to patient's pharmacy. Patient will follow up with primary care as soon as possible for referral to physical therapy for further eval and treatment of low back pain and possible MRI of the lumbar spine to rule out bulge disc and lumbar radiculopathy. Return to ED with any worsening, concerning or changing symptoms. Patient declined prescription of narcotic pain meds at this time. Referrals: NO PRIMARY CARE PROVIDER (PCP) Prescriptions Celecoxib* (Celebrex*) 100 Mg Capsule 1 CAP PO Q12H for arthritis for 15 Days, #30 CAP Prov: RACHAEL AVALOS PAC 10/20/24 Methocarbamol (Methocarbamol) 750 Mg Tablet 1 TAB PO Q8H for 15 Days, #45 TAB 0 Refills Prov: RACHAEL AVALOS PAC 10/20/24 Additional Comment Additional Comment I did offer hospitalist consult and admission however Patient declined hospitalist consult or admission at this time. Signature Scribe Signature: No scribe Attestation: No scribe RACHAEL AVALOS PAC Oct 20, 2024 18:33
[2024-10-20] MEDS ORDERED: METH-798 PO (18:50)
[2024-10-20] MEDS ORDERED: CELE-193 PO (18:50)
[2024-10-20 19:02] LABS: LEUKOCYTE ESTERASE ,URINE NEGATIVE (Neg); NITRITES, URINE NEGATIVE (Neg); OCCULT BLOOD,URINE TRACE-INTACT (Neg)
[2024-10-20 19:10] LABS: UA COLLECTION TYPE CLN CATCH MIDSTREAM
[2024-10-20 19:15] LABS: SQUAMOUS EPITHELIAL CELL,UR FEW /LPF (FEW); URIC ACID CRYSTALS FEW /HPF (NEGATIVE)
[2024-10-20 19:34] VITALS: RESP 16
[2024-10-20] MEDS: ketorolac trometh 30MG/ML vial 30 MG/ML VIAL IV STA (19:34)
[2024-10-20 19:40] VITALS: TEMP 98.8
== END 2024-10-20 19:41 | disposition home or self-care (01) ==
LOC: ER 14:44
DX: M54.50 Low back pain, unspecified (principal); Z88.2 Allergy status to sulfonamides; Z88.8 Allergy status to other drugs, medicaments and biological substances
CPT/HCPCS: 36415; 80048; 81001; 85025; 96374; 99283; J1885

== ENCOUNTER 2024-10-28 09:17 | Emergency (ER) | payer MEDICARE ==
[~2024-10-28] VITALS: Ht 157.5 cm; Wt 71.8 kg
[~2024-10-28 09:17] MED LIST changes: +CELE-193 PO; +METH-798 PO
[2024-10-28 09:21] VITALS: BP 148/80; PULSE 104; O2SAT 99
[2024-10-28 09:39] VITALS: RESP 16
--- NOTE | 2024-10-28 12:55 | RADIOLOGY REPORT ---
PROCEDURE: MRI lumbar spine without contrast. INDICATION: Lower Back pain COMPARISON: CT scan of the abdomen pelvis dated 08/13/2024. TECHNIQUE: MRI lumbar spine without intravenous contrast utilizing multiplanar, multisequence techni que. FINDINGS: The alignment of the lumbar spine vertebral bodies is preserved. There are acute or subacute fracture s through the L3 , L4 and L5 superior endplate associated with marrow edema. No osseous retropulsion. There is 20% vertebral body height loss of L3, L4 and L5. The vertebral body heights are otherwise m aintained. There is multilevel intervertebral disc space narrowing and diminished T2 signal intensity throughout the lumbar spine. The conus medullaris is normal in signal characteristics and terminates at the T12-L1 level. Paraspinal muscles are unremarkable. At the T12-L1 level, there is no evidence of central spinal canal or neuroforaminal stenosis. At the L1-L2 level, there is broad-based posterior disc bulge, ligamentum flavum and facet hypertroph y. There is mild canal stenosis. There is moderate bilateral neural foraminal stenosis. At the L2-L3 level, there is broad-based posterior disc bulge, ligamentum flavum and facet hypertroph y. There is moderate canal stenosis. Moderate to severe left and mild right neural foraminal stenosi s. At the L3-L4 level, there is broad-based posterior disc bulge, ligamentum flavum thickening and facet hypertrophy. There is mild canal stenosis. There is moderate bilateral neural foraminal stenosis. At the L4-L5 level, there is broad-based posterior disc bulge, ligamentum flavum thickening and facet hypertrophy. There is moderate canal stenosis. There is severe left neural foraminal stenosis with impingement of the left L4 nerve root. There is severe right neural foraminal stenosis with impingeme nt of the right L4 nerve root. At the L5-S1 level, there is broad-based posterior disc bulge, ligamentum flavum thickening and facet hypertrophy. There is no significant spinal stenosis. Moderate bilateral neural foraminal stenosis . Bilateral facet joint effusions with synovial cysts posterior to the spinous process. Other: None. IMPRESSION: 1. Acute or subacute fractures of the L3, L4 and L5 vertebral bodies with 20% vertebral body height l oss. No osseous retropulsion. 2. Multilevel lumbar spondylosis, most severe at L4-L5 where there is severe bilateral neural foramin al stenosis and impingement of the bilateral L4 nerve roots. There is moderate canal stenosis at L4-L 5. 3. Severe bilateral facet arthropathy at L5-S1 with facet joint effusions and synovial cysts posterio r to the canal.
--- NOTE | 2024-10-28 13:34 | Physician Documentation ---
History of Present Illness ~ Chief Complaint: Back Pain Stated Complaint: BACK PAIN Time Seen by MD: 09:48 HPI 69 year old female seen for back pain recently at our ER, instructed to come back for worsening symptoms, reports low back pain radiating to bilateral lower extremity pain and numbness. She denies any weakness to her limbs or falling, as well as any fevers, saddle anesthesia, or bowel or bladder incontinence. Her pain just hasn't improved over the past week and she has had difficulty finding follow up as an outpatient and would like an MRI. Medication Reconciliation Allergies: Coded Allergies: Sulfa (Sulfonamide Antibiotics) (Verified Allergy, Unknown, hives, 10/20/24) Scheduled Amlodipine Besylate (Amlodipine Besylate), 1 TAB PO DAILY Celecoxib* (Celebrex*), 1 CAP PO Q12H Methocarbamol (Methocarbamol), 1 TAB PO Q8H Prednisone (Prednisone), 0 PO DAILY Past Medical History Past Medical History: No Pertinent History Smoking Status: Never smoker Review of Systems All Other Systems at this time: Reviewed and Negative Physical Exam Physical Exam Vital Signs: RN Vital Signs have been reviewed: Yes, Source: Oral, Heart Rate: 104, Respiratory Rate: 16, BP: 148/80, Pulse Oximetry: 99, Weight: 71.820 Physical Exam HEENT: PERRL, moist oral mucosa, EOMI Pulmonary: No respiratory distress MSK: no deformity Skin: w/d/i, no rash Neuro: alert, nonfocal, full strength BLE Psych: normal affect Progress Results/Orders Results/Orders Orders - ROMAIN BROOKS MD Mri Lumbar Spine (10/28/24 12:00) Completed Orders - ROMAIN BROOKS MD Mri Lumbar Spine (10/28/24 12:00) Lorazepam Tablet (Ativan Tablet) (10/28/24 11:50) Medications Received in ER Medications (Trade) Dose Ordered Sig/Paul Route PRN Reason Start Time Stop Time Status Last Admin Dose Admin (Ativan tablet) 1 mg ONCE ONCE PO 10/28/24 11:50 10/28/24 11:51 DC 10/28/24 11:54 1 MG Vital Signs 10/28/24 10/28/24 09:21 09:39 Pulse 104 Resp 18 16 B/P (MAP) 148/80 Pulse Ox 99 Medical Decision Making Findings 69 year old female with severe lower back pain, likely from radiculopathy / foraminal stenosis. No red flag signs/ symptoms. MRI demonstrated multilevel disc bulging, several vertebral body fractures of unknown age, and neur oforaminal stenosis of various severity but no much central canal stenosis. Counseled, reassured, offered pain medication but patient refused. Return precautions discussed. 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 Attestation: . ROMAIN BROOKS MD Oct 28, 2024 13:34
== END 2024-10-28 13:50 | disposition home or self-care (01) ==
LOC: ER 09:18
DX: S32.038A Other fracture of third lumbar vertebra, initial encounter for closed fracture (principal); S32.048A Other fracture of fourth lumbar vertebra, initial encounter for closed fracture; S32.058A Other fracture of fifth lumbar vertebra, initial encounter for closed fracture; Z88.2 Allergy status to sulfonamides; Z79.899 Other long term (current) drug therapy; W19.XXXA Unspecified fall, initial encounter; Y93.89 Activity, other specified; Y92.89 Other specified places as the place of occurrence of the external cause; Y99.8 Other external cause status
CPT/HCPCS: 72148; 99284

== ENCOUNTER 2025-02-27 13:31 | Emergency (ER) | payer MEDICARE ==
[~2025-02-27] VITALS: Ht 154.9 cm; Wt 140.0 kg
[~2025-02-27 13:31] MED LIST changes: -CELE-193 PO; +FAMO20TA8 PO; +HYDR50TA46 PO; +LOPE-190 PO; -METH-798 PO
--- NOTE | 2025-02-27 15:11 | RADIOLOGY REPORT ---
DI FOREARM,INCL.ONE JOINT, INDICATION: Mild injury sustained on , significant swelling erythema warmth TECHNICAL DATA: Frontal and lateral views were obtained of the right forearm. COMPARISON: None FINDINGS: There is no osseous abnormality. Soft tissues are normal. IMPRESSION: No acute fracture or dislocation.
--- NOTE | 2025-02-27 15:14 | RADIOLOGY REPORT ---
DI HAND, COMPLETE (3VW MIN), INDICATION: Mild injury sustained on , significant swelling erythema warmth TECHNICAL DATA: Frontal, oblique and lateral views were obtained of the right hand. COMPARISON: None FINDINGS: No fracture is identified. Joint spaces are maintained. Alignment is anatomic. Soft tissues are within normal limits. IMPRESSION: No acute fracture or dislocation of the right hand.
--- NOTE | 2025-02-27 15:21 | Physician Documentation ---
History of Present Illness ~ Chief Complaint: Wrist pain Stated Complaint: RIGHT WRIST PAIN Time Seen by MD: 14:22 HPI Patient is a very pleasant 69-year-old female that presents to the emergency department for evaluation of injuries sustained to her arm on . Patient reports that she was carrying a laundry basket that is not very heavy over her forearm and she went to sling it over a rail and did so at that time. Over the course of the last 4 days her arm has become very swollen erythematous and warm to the touch. X-rays are negative for any fracture at this time. Patient reports that she was seen by a primary care provider at [facility] today that referred her over due to his concern for compartment syndrome due to the amounts of swelling and erythema and warmth that are noted to the arm. Tetanus within 5 years: No Medication Reconciliation Allergies: Coded Allergies: Sulfa (Sulfonamide Antibiotics) (Verified Allergy, Unknown, hives, 02/27/25) ciprofloxacin (Unverified Adverse Reaction, Intermediate, nausea and vomiting, 02/27/25) instructed not to take per PCP. metronidazole (Unverified Adverse Reaction, Intermediate, nausea and vomiting, 02/27/25) instructed not to take per PCP Scheduled Amlodipine Besylate (Amlodipine Besylate), 1 TAB PO DAILY Clindamycin HCl (Clindamycin HCl), 1 CAP PO Q8H Famotidine (Famotidine), 1 TAB PO Q12H Hydralazine HCl (Hydralazine HCl), 0.5 TAB PO Q12H Loperamide HCl (Imodium A-D), 1 CAP PO Q8H Prednisone (Prednisone), 0 PO DAILY Past Medical History Past Medical History: No Pertinent History Alcohol Use: Sober Drug Use: none Lives with: Spouse Lives In: Home Occupation: retired Review of Systems ROS As stated above in the HPI, otherwise all systems are reviewed and negative. Physical Exam Vital Signs: Temperature: 98.6, Heart Rate: 120, Respiratory Rate: 16, BP: 149/82, Pulse Oximetry: 99, Weight: 140.000 Oxygen Flow Rate: 0 Physical Exam VITALS: Reviewed and as above. GENERAL: Alert, no apparent distress. HEENT: Normocephalic, atraumatic, PERRL, EOMI, dry mucosa, no erythema RESPIRATORY: Lungs clear, normal breath sounds, no respiratory distress. CHEST: No accessory muscle use, no retractions CV: Regular rate, rhythm, no edema, no murmur, No: JVD GI: Soft, non-tender, bowels sounds present, no rebound, guarding, or rigidity BACK: No CVA tenderness, or swelling MUSCULOSKELETAL No deformities, no edema SKIN: Warm and dry, edema erythema and warmth noted to the right hand wrist and forearm, neuro is still intact in the hand wrist and forearm, reduced range of motion and tenderness noted with range of motion and palpation during examination. 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 (Omnipaque-3 (02/27/25 16:42) Clindamycin 600mg/D5w 50ml (Cleocin 600m (02/27/25 20:00) Clindamycin 600mg/D5w 50ml (Cleocin 600m (02/27/25 18:15) Acetaminophen 1,000mg/100ml Iv (Ofirmev (02/27/25 18:35) Acetaminophen 1,000mg/100ml Iv (Ofirmev (02/27/25 18:40) Medications Received in ER Medications (Trade) Dose Ordered Sig/Paul Route PRN Reason Start Time Stop Time Status Last Admin Dose Admin Sodium Chloride 500 ml @ 500 mls/hr Q1H IV 02/27/25 16:40 02/27/25 18:18 DC 02/27/25 16:44 500 MLS/HR Clindamycin HCl/ Dextrose 50 ml @ 100 mls/hr ONCE ONCE IV 02/27/25 18:15 02/27/25 18:44 DC 02/27/25 18:44 100 MLS/HR Acetaminophen 100 ml @ 400 mls/hr ONCE ONCE IV 02/27/25 18:40 02/27/25 18:54 DC 02/27/25 18:45 400 MLS/HR Vital Signs 02/27/25 02/27/25 02/27/25 13:46 16:16 18:58 Temp 98.6 98.6 Pulse 120 99 100 Resp 16 18 B/P (MAP) 149/82 136/63 (87) 158/85 (109) Pulse Ox 99 99 98 O2 Flow Rate 0 0 0 Laboratory Tests Test 02/27/25 15:54 02/27/25 17:12 White Blood Count 19.8 H Red Blood Count 4.21 Hemoglobin 11.9 L Hematocrit 34.9 L Mean Corpuscular Volume 82.7 Mean Corpuscular Hemoglobin 28.1 Mean Corpuscular Hemoglobin Concent 34.0 Red Cell Distribution Width 13.7 Platelet Count 436 Mean Platelet Volume 7.9 Neutrophils (%) (Auto) 83.5 H Lymphocytes (%) (Auto) 8.4 L Monocytes (%) (Auto) 7.4 Eosinophils (%) (Auto) 0.2 Basophils (%) (Auto) 0.5 Neutrophils # (Auto) 16.6 H Lymphocytes # (Auto) 1.7 Monocytes # (Auto) 1.5 H Eosinophils # (Auto) 0.0 Basophils # (Auto) 0.1 CBC Comment Sodium Level 139 Potassium Level 3.1 L Chloride Level 101 Carbon Dioxide Level 28.0 Anion Gap 10 Blood Urea Nitrogen 21 H Creatinine 1.27 H Estimated GFR/1.73 m2 41 BUN/Creatinine Ratio 16.5 Glucose Level 104 Calcium Level 9.0 Total Bilirubin 0.7 Aspartate Amino Transf (AST/SGOT) 29 Alanine Aminotransferase (ALT/SGPT) 20 Alkaline Phosphatase 99 Total Protein 8.1 Albumin 3.9 Globulin 4.2 Albumin/Globulin Ratio 0.9 L Chemistry Comments Lactic Acid Level 0.4 Microbiology Date/Time Source Procedure Growth Status 02/27/25 17:19 Blood Hand Left Blood Culture - Preliminary NEGATIVE (LESS THAN 24 HOURS) Resulted Medical Decision Making Additional information obtaine: other Findings 69-year-old female with a history and diagnosis of cellulitis involving the right hand, wrist, and forearm presented to the emergency department with progressive swelling, erythema, and warmth. CT imaging was negative for necrotizing soft tissue infection. The patient received 600 mg intravenous clindamycin in the ED, with mild clinical improvement noted and preservation of all motor and sensory function. Given the absence of systemic toxicity, necrotizing infection, or hemodynamic instability, and the presence of clinical improvement, the patient is appropriate for outpatient management. She will be discharged with oral clindamycin 300 mg three times daily, which is supported by guideline recommendations for serious skin and soft tissue infections and is safe in the context of renal deficiency, as clindamycin does not require dose adjustment for renal impairment. The recommended duration of therapy is 5 days, with extension if clinical improvement is insufficient. The patient will follow up with her primary care provider in the morning for reassessment. She was counseled to return to the emergency department for any worsening or recurrent symptoms, including inc reased pain, swelling, erythema, loss of function, or systemic signs. No evidence of necrotizing infection was found on imaging, and there are no clinical features warranting surgical intervention. The affected limb should be kept elevated, and predisposing factors such as edema should be addressed as per guideline recommendations. General Diff Dx:Considerations: Include: Abrasion, Contusion, Fracture, Hematoma, Laceration, Malunion, Neurovascular injury, Open fracture, Sprain, Ulcer, Other Shoulder Diff Dx:Consideration: Include: AC separation, Adhesive capsulitis, Arthritis, Bicipital tendonitis, Calcific tendonitis, Cervical disc disease, Contusion, Dislocation, Fracture-humerus, Fracture-scapula, Fracture-clavicle, GB disease, Hematoma, Impingement syndrome, Myocardial infarction, Neurovascular injury, Open fracture-humerus, Open fracture-scapula, Open fracture-clavicle, Rotator cuff injury, SC dislocatoin, Sprain, Subacromial bursitis, Other Elbow Diff Dx:Considerations: Include: Abrasion, Arthritis, Contustion, DJD, Fracture-humerus, Fracture-radial head, Fracture-radius, Fracture-ulna, Gout, Hematoma, Laceration, Neurovascular injury, Olecranon bursitis, Open fracture, Osteomyelitis, Radial head subluxation, Rheumatoid arthritis, Septic, Sprain, Ulcer, Other Wrist Diff Dx:Considerations: Include: Abrasion, Arthritis, DJD, Gout, Rheumatoid, Septic, Carpal tunnel snydrome, Contusion, Dislocation, Fracture- carpal, Fracture-radius, Fracture-ulna, Ganglion, Laceration, Neurovascular injury, Open fracture, Strain, Other Hand Diff Dx:Considerations: Include: Abrasion, Arthritis, Contusion, DJD, Felon, Fracture-carpal, Fracture-metacarpal, Fracture-phalynx, Fracture-radius, Fracture-ulna, Gout, Hematoma, Herpetic marek, Laceration, Neurovascular injury, Open fracture, Paronychia, Rheumatoid arthritis, Septic, Sprain, Subungual hematoma, Tenosynovitis, Volar plate injury, Cellulitis, Malunion, Other Finger Diff Dx:Considerations: Include: Abrasion, Cellulitis, Contusion, Dislocation, Fracture, Hematoma, Laceration, Neurovascular injury, Open fracture, Subungual hematoma, Other Departure Disposition: 01 HOME / SELF CARE / HOMELESS Impression: Primary Impression: Cellulitis Additional Impression: Cellulitis of right upper extremity Condition: Stable Discharge Instructions: Cellulitis, Adult, [id number] Additional Instructions: You have been diagnosed with cellulitis of your right hand, wrist, and forearm. Cellulitis is a skin infection that can cause redness, swelling, warmth, and pain. You received your first dose of antibiotics in the emergency department and will continue taking clindamycin at home. What to do next: Take your antibiotics exactly as prescribed. Do not skip doses. Keep your affected arm elevated as much as possible to help reduce swelling. If you have any conditions that cause swelling (like lymphedema or chronic harjinder ma), follow your usual care instructions. Rest and avoid strenuous activity with the affected arm until cleared by your doctor. Very close follow-up is needed: You must see your primary care provider tomorrow morning for a recheck. This is important to make sure the infection is improving and to adjust your treatment if needed. Strict return precautions: Return to the emergency department immediately if you notice any of the following: Increased redness, swelling, warmth, or pain in your arm Red streaks spreading up your arm New or worsening fever (temperature above 100.4F/38C) Chills or shaking Trouble moving your fingers, hand, or arm Numbness, tingling, or loss of feeling in your hand or arm Any drainage of pus from the skin Feeling very weak, dizzy, or faint Other important information: Sometimes, symptoms may get a little worse before they get better as the infec tion starts to clear. If you have any questions or concerns about your medicine or symptoms, call your doctor or return to the emergency department. Preventing future infections: Keep your skin clean and dry. Treat any cuts, scrapes, or insect bites right away. If you have swelling or skin problems, talk to your doctor about ways to lower your risk of cellulitis coming back. Remember: Close follow-up and watching for warning signs are very important for your recovery. Do not wait if you feel worse or have any of the symptoms listed above. Referrals: NO PRIMARY CARE PROVIDER (PCP) Prescriptions Clindamycin HCl (Clindamycin HCl) 300 Mg Capsule 1 CAP PO Q8H for 10 Days, #30 CAP Prov: JERI DAMIAN 02/27/25 Education Educated: Patient Educated regarding: diagnosis, treatment, need for follow up Signature Scribe Signature: A Attestation: Scribed for Jeri Damian by CONNER Marie . 02/27/25 19:40 JERI DAMIAN Feb 27, 2025 15:21
[2025-02-27 16:06] LABS: MEAN PLATELET VOLUME 7.9 FL (7.4-10.4); RED CELL DISTRIBUTION WIDTH 13.7 % (11.5-14.5)
[2025-02-27 16:18] LABS: CREATININE 1.27 MG/DL (0.40-0.90); TOTAL CARBON DIOXIDE 28.0 MMOL/L (24-32); eCRCL 31 ML/MIN; eGFR 41 ML/MIN
[2025-02-27] MEDS ORDERED: iohexol 300mg/ml 100ml inj. ONE (16:42)
[2025-02-27] MEDS: normal saline 500ml IV soln 500 ML IV SCH (16:44)
--- NOTE | 2025-02-27 18:27 | RADIOLOGY REPORT ---
INDICATION: Significant edema erythema and warmth to the right forearm wrist and hand COMPARISON: None TECHNIQUE: CT of the right upper extremity was performed with contrast. Volume transverse images were obtained and reconstructed in multiple planes using bone and soft tissue algorithms. Radiation Dose Information: CT Dose: CTDI volume is 3 mGy. Dose-length product is 107.27 mGy*cm FINDINGS: No acute fracture or dislocation. No bony erosions or lucencies. No soft tissue gas. No fluid collections. There is diffuse subcutaneous edema throughout the distal forearm, wrist, and hand IMPRESSION: Diffuse subcutaneous edema throughout the distal forearm, wrist, and hand. Findings are nonspecific but may be seen with cellulitis. All CT scans at this medical facility are performed using dose modulation techniques as appropriate to a performed exam including the following: Automated exposure control was utilized; adjustment of the MA and/or KV according to patient size; and use of iterative reconstruction technique.
[2025-02-27] MEDS ORDERED: acetaminophen 1,000mg/100ml IV 100 ML IV ONE (18:35)
[2025-02-27] MEDS: acetaminophen 1,000mg/100ml IV 100 ML IV ONE (18:45)
[2025-02-27] MEDS ORDERED: CLIN-197 PO (19:20)
[2025-02-27 19:46] VITALS: BP 123/58; PULSE 96; RESP 16; TEMP 98.9; O2SAT 96
== END 2025-02-27 19:54 | disposition home or self-care (01) ==
LOC: ER 13:32
DX: L03.113 Cellulitis of right upper limb (principal); Z88.2 Allergy status to sulfonamides; Z88.1 Allergy status to other antibiotic agents; Z79.899 Other long term (current) drug therapy
CPT/HCPCS: 36415; 73090; 73130; 73201; 80053; 83605; 85025; 87040; 96365; 96368; 99285; J0131; J3490; J7040; Q9967